=== PATIENT | male | born 1960 | race Caucasian/White ===

== ENCOUNTER → 2017-01-10 | Outpatient (CLI) | payer BC ==
[~2017-01-10] MED LIST: CEPH-507 PO; GLUC1CAP37 PO; HYDR-3875 PO; MULT-35 PO
--- OUTSIDE RECORDS SUMMARY | 2017-01-10 09:02 | XMS REPORT | Continuity of Care Document ---
Author Author [facility] Organization [facility] Address Unknown Phone Unavailable Allergies Medications Problems Date Dx Coded Attending Type Code Diagnosis Diagnosed By 10/01/2015 Ot 719.41 10/01/2015 Ot 786.59 10/01/2015 Ot 715.31 10/01/2015 Ot 719.41 10/01/2015 Ot 719.81 10/15/2015 KENNY HURST MD Ot R93.7 Procedures Results Encounters ACCT No. Visit Date/Time Discharge Status Pt. Type Provider Facility Loc./Unit Complaint [id number] 10/01/2015 07:23:00 2014 23:59:59 CLS Outpatient KENNY HURST MD [facility] RAD [id number] 07/12/2012 08:47:00 Document Registration [id number] 07/12/2012 07:37:00 Document Registration
--- NOTE | 2017-01-10 13:38 | Diagnostic Imaging Report ---
Ultrasound of the scrotum. INDICATION: Right-sided fullness. FINDINGS: There are no prior studies available for comparison. Spectral and color flow imaging was utilized. Both testicles were identified. The right testicle measures 3.1 x 2.2 x 2.6 cm while the left testicle measures 2.8 x 1.5 x 2.1 cm. There is no evidence for a solid testicular mass and there is good blood flow to each testicle. There is a sizable 3.2 x 2.6 x 3.5 cm epididymal cyst on the right. This cyst contains few internal echoes and I suspected that it has been slightly complicated by infection and/or hemorrhage. The epididymis on the left also contains a cyst but this is much smaller. The left epididymal cyst measures 1.5 x 0.7 x 0.9 cm and appears to be a simple cyst. There is no hydrocele or varicocele formation identified. IMPRESSION: 1. There is no evidence for a solid testicular mass and there is no sign of torsion. 2. There are bilateral epididymal cysts including a sizable, slightly complicated 3.2 x 2.6 x 3.5 cm cyst arising from the right epididymis. Dictated by: Dictated on workstation # [id number]
== END ==
LOC: RAD 08:59
PROVIDERS: ATTEND Internal Medicine
DX: N44.8 Other noninflammatory disorders of the testis (principal)
CPT/HCPCS: 76870

== ENCOUNTER 2017-01-17 05:47 | Outpatient (CLI) | payer BC ==
[~2017-01-17] VITALS: Ht 175.3 cm; Wt 79.4 kg
--- OUTSIDE RECORDS SUMMARY | 2017-01-17 05:50 | XMS REPORT | Continuity of Care Document ---
Author Author [facility] Organization [facility] Address Unknown Phone Unavailable Allergies Medications Problems Date Dx Coded Attending Type Code Diagnosis Diagnosed By 10/01/2015 Ot 719.41 10/01/2015 Ot 786.59 10/01/2015 Ot 715.31 10/01/2015 Ot 719.41 10/01/2015 Ot 719.81 10/15/2015 KENNY HURST MD Ot R93.7 01/10/2017 Ot 719.41 JOINT PAIN-SHLDER 01/10/2017 Ot 786.59 CHEST PAIN NEC 01/10/2017 Ot 715.31 LOC OSTEOARTH NOS-SHLDER 01/10/2017 Ot 719.41 JOINT PAIN-SHLDER 01/10/2017 Ot 719.81 JOINT DIS NEC-SHLDER 01/10/2017 ARIS GALLAGHER, KENNY Boyd Ot R93.7 ABNORMAL FINDINGS ON DIAGNOSTIC IMAGING 01/11/2017 JUAN M GALLAGHER, YOSSI Gracia Ot N44.8 OTHER NONINFLAMMATORY DISORDERS OF THE T Procedures Results Encounters ACCT No. Visit Date/Time Discharge Status Pt. Type Provider Facility Loc./Unit Complaint [id number] 10/01/2015 07:23:00 2014 23:59:59 CLS Outpatient KENNY HURST MD [facility] RAD SHOULDER DYSFUNCTION/ARTHRITIS [id number] 01/17/2017 05:47:00 ACT Outpatient SWETA HARDWICK MD [facility] PREOP RIGHT SPERMITIS [id number] 01/10/2017 08:59:00 ACT Outpatient YOSSI MCGOWAN MD [facility] RAD ENLARGED RIGHT TESTICLE [id number] 07/12/2012 08:47:00 Document Registration [id number] 07/12/2012 07:37:00 Document Registration
[2017-01-17] MEDS ORDERED: MULT-35 PO (14:50)
[2017-01-17] MEDS ORDERED: GLUC1CAP37 PO (14:50)
== END 2017-01-17 14:55 ==
LOC: PREOP 05:47
PROVIDERS: ATTEND Urology
DX: Z01.818 Encounter for other preprocedural examination (principal); Z12.11 Encounter for screening for malignant neoplasm of colon

== ENCOUNTER 2017-01-19 06:00 | Day surgery (SDC) | payer BC ==
[~2017-01-19] VITALS: Ht 175.3 cm; Wt 79.4 kg
[~2017-01-19 06:00] MED LIST changes: -CEPH-507 PO; -HYDR-3875 PO
--- OUTSIDE RECORDS SUMMARY | 2017-01-19 06:04 | XMS REPORT | Continuity of Care Document ---
Author Author [facility] Organization [facility] Address Unknown Phone Unavailable Allergies Active Description Code Type Severity Reaction Onset Reported/Identified Relationship to Patient Clinical Status Yes No Known Drug Allergies [id number] Drug Allergy Unknown N/ A 01/17/2017 Medications Problems Date Dx Coded Attending Type Code Diagnosis Diagnosed By 10/01/2015 Ot 719.41 10/01/2015 Ot 786.59 10/01/2015 Ot 715.31 10/01/2015 Ot 719.41 10/01/2015 Ot 719.81 10/15/2015 KENNY HURST MD Ot R93.7 01/10/2017 Ot 719.41 JOINT PAIN-SHLDER 01/10/2017 Ot 786.59 CHEST PAIN NEC 01/10/2017 Ot 715.31 LOC OSTEOARTH NOS-SHLDER 01/10/2017 Ot 719.41 JOINT PAIN-SHLDER 01/10/2017 Ot 719.81 JOINT DIS NEC-SHLDER 01/10/2017 KENNY HURST MD Ot R93.7 ABNORMAL FINDINGS ON DIAGNOSTIC IMAGING 01/11/2017 JUAN M GALLAGHER, YOSSI Gracia Ot N44.8 OTHER NONINFLAMMATORY DISORDERS OF THE T 01/18/2017 SWETA HARDWICK MD Ot Z01.818 ENCOUNTER FOR OTHER PREPROCEDURAL EXAMIN 01/18/2017 SWETA HARDWICK MD Ot Z12.11 ENCOUNTER FOR SCREENING FOR MALIGNANT NE Procedures Results Encounters ACCT No. Visit Date/Time Discharge Status Pt. Type Provider Facility Loc./Unit Complaint [id number] 01/17/2017 05:47:00 2016 14:55:00 DIS Outpatient SWETA HARDWICK MD [facility] PREOP RIGHT SPERMITIS [id number] 10/01/2015 07:23:00 2014 23:59:59 CLS Outpatient KENNY HURST MD [facility] RAD SHOULDER DYSFUNCTION/ARTHRITIS [id number] 01/19/2017 06:00:00 ACT Outpatient SWETA HARDWICK MD [facility] RIGHT SPERMITIS [id number] 01/10/2017 08:59:00 ACT Outpatient YOSSI MCGOWAN MD [facility] RAD ENLARGED RIGHT TESTICLE [id number] 07/12/2012 08:47:00 Document Registration [id number] 07/12/2012 07:37:00 Document Registration
--- OUTSIDE RECORDS SUMMARY | 2017-01-19 06:04 | XMS REPORT | Continuity of Care Document ---
Author Author [facility] Organization [facility] Address Unknown Phone Unavailable Allergies Active Description Code Type Severity Reaction Onset Reported/Identified Relationship to Patient Clinical Status Yes No Known Drug Allergies [id number] Drug Allergy Unknown N/ A 01/17/2017 Medications [...] Status Pt. Type Provider Facility Loc./Unit Complaint [id number] 01/17/2017 05:47:00 2016 14:55:00 DIS Outpatient SWETA HARDWICK MD [facility] PREOP RIGHT SPERMITIS [id number] 10/01/2015 07:23:00 2014 23:59:59 CLS Outpatient KENNY HURST MD [facility] RAD SHOULDER DYSFUNCTION/ARTHRITIS [id number] 01/19/2017 06:00:00 ACT Outpatient SWETA HARDWICK MD [facility] RIGHT SPERMITIS [id number] 01/10/2017 08:59:00 ACT Outpatient YOSSI MCGOWAN MD [facility] RAD ENLARGED RIGHT TESTICLE [id number] 07/12/2012 08:47:00 Document Registration [id number] 07/12/2012 07:37:00 Document Registration
[2017-01-19] MEDS: LACTATED RINGERS 1,000 ML IV PRN ×2 (06:30→08:05)
[2017-01-19] MEDS ORDERED: ceFAZolin 1,000 MG (ANCEF) VIAL ONE (06:32)
[2017-01-19] MEDS ORDERED: NS (IVPB) 50 ML ONE (06:32)
[2017-01-19] MEDS ORDERED: DEXAMETHASONE PF 10 MG/ML (DECADRON) VIAL ONE (06:57)
[2017-01-19] MEDS ORDERED: MIDAZOLAM 2 MG/2 ML (VERSED) VIAL ONE (06:57)
[2017-01-19] MEDS ORDERED: LACTATED RINGERS 1,000 ML IV ONE ×2 (06:57→08:00)
[2017-01-19] MEDS ORDERED: ONDANSETRON 4 MG/2 ML (SDV) Z0FRAN ONE (06:57)
[2017-01-19] MEDS ORDERED: fentaNYL INJECTION 100 MCG/2 ML AMP ONE ×2 (06:57→07:48)
[2017-01-19] MEDS ORDERED: proPOfol 200 MG/20 ML (DIPRIVAN) VIAL IV ONE (06:57)
[2017-01-19] MEDS ORDERED: LIDOCAINE PF 2% 10 ML (XYLOCAINE) AMP ONE (06:57)
[2017-01-19] MEDS ORDERED: SEVOFLURANE (ULTANE) 15 ML INHAL SOLN ONE ×5 (06:57→08:40)
[2017-01-19] MEDS ORDERED: CATHETER FLUSH 10 ML SYR IV PRN (07:15)
[2017-01-19] MEDS ORDERED: ceFAZolin 1 GM/NS 50 ML IVPB IV ONE ×2 (07:15)
--- NOTE | 2017-01-19 07:15 | Progress Note-Post Operative ---
Post-Operative Progess Note Pre-Operative Diagnosis RT SPERMATOCELE Post-Operative Diagnosis SAME Post-Op Procedure Note Date of Procedure: Jan 19, 2017 Name of Procedure: RT SPERMATOCELECTOMY Anesthesia Type GENERAL Estimated blood loss (mL): NEGLIGIBLE Specimen(s) collected RT SPERMATOCELE SWETA HARDWICK MD Jan 19, 2017 7:15 am
--- NOTE | 2017-01-19 07:15 | Progress Note-Pre Operative ---
Pre-Operative Progress Note H&P Reviewed The H&P was reviewed, patient examined and no changes noted. Date H&P Reviewed: Jan 19, 2017 Time H&P Reviewed: 07:14 Pre-Operative Diagnosis: RT SPERMATOCELE SWETA HARDWICK MD Jan 19, 2017 7:15 am
--- NOTE | 2017-01-19 07:18 | Discharge Inst-Urology ---
Discharge Inst-Urology Discharge Medications New, Converted, or Re-newed RX: RX on Chart Patient Instructions/Follow Up Plan Please make appointment to been seen in office in 2 weeks. Rest till then Ice to scrotum in RR and at home for 6hrs and then PRN Office tomorrow 9AM to DC drain, may shower after that, no bath Keep bowels soft and moving Increase oral fluids for 48 hours and then as needed. Diet and Activity as tolerated. If questions or concerns contact your physician Or seek help at emergency department. SWETA HARDWICK MD Jan 19, 2017 7:18 am
[2017-01-19 07:41] VITALS: BP 119/83
[2017-01-19] MEDS: morphine INJ 10 MG/ML 1ML (SYR OR VIAL) IVP PRN ×3 (08:59→09:13)
[2017-01-19] MEDS ORDERED: MEPERIDINE (DEMEROL) INJ 50 MG/ML IVP PRN (09:00)
[2017-01-19] MEDS ORDERED: ONDANSETRON 4 MG/2 ML (SDV) Z0FRAN IVP PRN (09:00)
[2017-01-19 09:40] VITALS: BP 132/90
[2017-01-19 10:10] VITALS: BP 122/79
[2017-01-19] MEDS ORDERED: HYDR-3875 PO (10:13)
[2017-01-19] MEDS ORDERED: CEPH-507 PO (10:13)
[2017-01-19] MEDS ORDERED: HYDROcodone/APAP 7.5 MG/325 MG (LORTAB, LORCET PLUS) TABLET PO ONE (10:30)
[2017-01-19 10:40] VITALS: BP 125/79
--- NOTE | 2017-01-19 13:45 | OPERATIVE REPORT ---
PROCEDURE PHYSICIAN: SWETA HARDWICK DATE OF PROCEDURE: 01/19/2017 PREOPERATIVE DIAGNOSIS: Right spermatocele. POSTOPERATIVE DIAGNOSIS: Right spermatocele. OPERATION: Right spermatocelectomy. SURGEON: Travis. ANESTHESIA: General. COMPLICATIONS: None. PROCEDURE: Under satisfactory general anesthesia, the patient supine position, the genitalia, abdomen and thigh were prepped and draped in usual sterile fashion. Incision was made in the median raphe, carried through the different layers of the scrotum. Bleeders were cauterized as the dissection was proceeding. The testicle and all structures were delivered. Was a big loculated spermatocele, testicle relatively smaller in size still bigger than the one on the left. The vessels were identified as well as the vas and preserved at all times. I tried to resect the whole spermatocele with all loculations without injuring any vital structures. Again, bleeders were cauterized or ligated with 4-0 chromic catgut. The sac was sent for pathology. Epididymis remained intact, as well as the vessels, vas and testicle remained healthy and pink and hemostasis was complete. The edge of the sac was sutured with a 4-0 chromic catgut running suture to prevent recurrence as well as hemostasis. The testicle was replaced into the scrotum which was drained with a quarter of an inch Lawn drain, brought through a separate stab wound at the bottom of the scrotum, secured in position with a 3-0 chromic catgut chart. Closure was performed in layers. The dartos with running 3-0 chromic catgut and the skin interrupted 4-0 Vicryl. Telfa fluff scrotal support was applied. Needle, sponge, and instrument counts were correct x2. Estimated blood loss was negligible. The patient tolerated the procedure and anesthesia well and was sent to recovery room in stable condition. Instructions were given to the family. Job ID: [id number] Dictated Date: 01/19/2017 08:42:27 Area Intelligence Technician Date: 01/19/2017 13:38:38 / juliocesar
== END 2017-01-19 11:25 | disposition home or self-care (01) ==
LOC: SDC 06:00
PROVIDERS: ATTEND Urology
DX: N43.41 Spermatocele of epididymis, single (principal); Z11.2 Encounter for screening for other bacterial diseases
CPT/HCPCS: 87081; 88304

== ENCOUNTER 2017-02-01 09:00 | Outpatient (CLI) | payer BC ==
[~2017-02-01] VITALS: Ht 175.3 cm; Wt 79.4 kg
[~2017-02-01 09:00] MED LIST changes: +CEPH-507 PO; +HYDR-3875 PO
== END 2017-02-01 10:59 ==
LOC: PREOP 09:00
PROVIDERS: ATTEND Surgery Pediatric Surgery
DX: Z01.818 Encounter for other preprocedural examination (principal); Z12.11 Encounter for screening for malignant neoplasm of colon

== ENCOUNTER 2017-02-02 09:20 | Day surgery (SDC) | payer BC ==
[~2017-02-02] VITALS: Ht 175.3 cm; Wt 79.4 kg
[2017-02-02] MEDS ORDERED: NS IV 500 ML 500 ML IV ONE (09:30)
[2017-02-02] MEDS ORDERED: FLUMAZENIL (ROMAZICON) 0.1 MG/ML 5 ML VIAL INJ PRN (09:30)
[2017-02-02] MEDS ORDERED: NALOXONE 0.4 MG/ML 1 ML (NARCAN) VIAL IVP PRN (09:30)
--- NOTE | 2017-02-02 09:39 | Conscious Sedation/ASA ---
Conscious Sedation Pre-Proced Time Reviewed: 09:30 ASA Class: 2 Airway Mallampati Classification: (nuiqsut appropriate class) I. II. III, IV Lungs Heart ASA score ASA 1: a normal healthy patient ASA 2: a patient with a mild systemic disease (mid diabetes, controlled hypertension, obesity ASA 3: a patient with a severe systemic disease that limits activity (angina , COPD, prior Myocardial infarction) ASA 4: a patient with an incapacitating disease that is a constant threat to life (CHF, renal failure) ASA 5: a moribund patient not expected to survive 24 hrs. (ruptured aneurysm) ASA 6: a declared brain patient whose organs are being harvested. For emergent operations, add the letter E after the classification Grade 2 Sedation Plan: Analgesia, Amnesia, Plan communicated to team members, Discussed options with patient/fam, Discussed risks with patient/fam Note The patient is an appropriate candidate to undergo the planned procedure, sedation, and anesthesia. The patient immediately re-assessed prior to indication. WALLY RABAGO MD Feb 02, 2017 9:39 am
--- NOTE | 2017-02-02 09:39 | Progress Note-Pre Operative ---
Pre-Operative Progress Note H&P Reviewed The H&P was reviewed, patient examined and no changes noted. Date H&P Reviewed: Feb 02, 2017 Time H&P Reviewed: 09:30 Pre-Operative Diagnosis: screening colonoscopy WALLY RABAGO MD Feb 02, 2017 9:39 am
[2017-02-02] MEDS: fentaNYL INJECTION 100 MCG/2 ML AMP IVP PRN ×2 (09:42→09:57)
[2017-02-02] MEDS: MIDAZOLAM 2 MG/2 ML (VERSED) VIAL IVP PRN ×4 (09:43→10:03)
[2017-02-02] MEDS ORDERED: HYDROcodone/APAP 5 MG/325 MG (LORTAB) TAB PO PRN ×2 (09:45→10:30)
[2017-02-02] MEDS ORDERED: ONDANSETRON 4 MG/2 ML (SDV) Z0FRAN IV PRN ×2 (09:45→10:30)
[2017-02-02] MEDS ORDERED: ACETAMINOPHEN 325 MG TABLET/CAPLET (TYLENOL) PO PRN ×2 (09:45→10:30)
[2017-02-02] MEDS ORDERED: morphine INJ 10 MG/ML 1ML (SYR OR VIAL) IV PRN ×2 (09:45→10:30)
[2017-02-02 10:15] VITALS: BP 130/85
--- NOTE | 2017-02-02 10:21 | Progress Note-Post Operative ---
Post-Operative Progess Note Surgeon (s)/Heading Saw Operator (s) Surgeon WALLY RABAGO MD Heading Saw Operator: none Pre-Operative Diagnosis screening colonoscopy Post-Operative Diagnosis chronic stage 1 ext and int hemmorrhoids, moderate-severe sigmoid diverticulosis, HP polyp hepatic flexure. Post-Op Procedure Note Date of Procedure: Feb 02, 2017 Name of Procedure Performed: Colonoscopy with bx. Description of the Procedure: Colonoscopy with bx. Findings of the Procedure . Anesthesia Type CS Estimated blood loss (mL): minimal Specimen(s) collected/removed hepatic flexure polyp WALLY RABAGO MD Feb 02, 2017 10:21 am
--- NOTE | 2017-02-02 10:23 | Discharge Inst-Surgical ---
D/C Lap Instructions-GEM Follow Up 5 years Activity as tolerated High Fiber Diet 25g or more per day Avoid Alcohol, Caffeine, Spicy [place] and Acid foods. Drink 64 fluid oz or more of fluids per day. Symptoms to Report: Fever over 101 degree F, Nausea/Vomiting If any problems/questions: Contact your physician or go to Emergency Room WALLY RABAGO MD Feb 02, 2017 10:23 am
[2017-02-02 10:30] VITALS: BP 107/81
[2017-02-02] MEDS ORDERED: LIDOCAINE JELLY 2% (XYLOCAINE) 5 ML TUBE TOP ONE (10:30)
[2017-02-02 11:00] VITALS: BP 119/79
[2017-02-02 11:10] VITALS: BP 119/79
--- NOTE | 2017-02-03 06:28 | OPERATIVE REPORT ---
PROCEDURE PHYSICIAN: WALLY INGRAM DATE OF PROCEDURE: 02/02/2017 ATTENDING PRIMARY CARE PHYSICIAN: Dr. Alberto. PREOPERATIVE DIAGNOSIS: Screening colonoscopy. POSTOPERATIVE DIAGNOSES: 1. Chronic stage I external and internal hemorrhoids. 2. Moderate to severe sigmoid diverticulosis. 3. Small hyperplastic polyp at the hepatic flexure. PROCEDURE: Colonoscopy with biopsy. SURGEON: Dr. Ingram. ANESTHESIA: Conscious sedation. ESTIMATED BLOOD LOSS: Minimal. FINDINGS: 1. Chronic stage I external and internal hemorrhoids. 2. Prostate gland was palpable and appeared normal. 3. Moderate to severe sigmoid diverticulosis with no signs of diverticulitis. 4. Small hyperplastic polyp at the hepatic flexure, approximately 2 mm in size. DISPOSITION: The patient tolerated the procedure well. BRIEF HISTORY: Mr. Ponce Funes is a 56-year-old and male in need of a screening colonoscopy. He has not had a colonoscopy up to this point in his life. He reports that he is doing well and does not report any major issues with diarrhea nor constipation, as well as no red blood per rectum nor any dark tarry stools. He also does not report any family history of colon cancer. PROCEDURE: The patient was brought to the endoscopy suite, laid in left lateral decubitus position. After adequate IV pain and sedative medications and conscious sedation anesthesia, a digital rectal examination was performed. Chronic stage I external and internal hemorrhoids were identified which were not actively edematous or inflamed and no bleeding. Normal sphincter tone was felt and there were no palpable masses. The prostate gland was palpable and appeared normal. The endoscope was then intubated into the anus and the rectum gently insufflated. The endoscope was then advanced through the valves of Wren the rectum with no polyps or any neoplasms identified. The endoscope was then advanced through the sigmoid colon where a moderate to severe segment of sigmoid diverticulosis was identified. There were no mucosal inflammatory changes to indicate any active diverticulitis. The endoscope was then advanced through the remainder of the descending, transverse colon. At the level of the hepatic flexure, a small hyperplastic polyp, approximately 2 mm in size was identified. This was biopsied and destroyed using forceps and electrocautery with visualization of good hemostasis. The endoscope was then advanced through the ascending colon to the cecum. This was normal. The endoscope was then slowly withdrawn while taking a second look and suctioning residual air with no additional findings. The patient tolerated the procedure well. We will have him continue with medical management with a high fiber diet with at least 30 grams of fiber per day, as well as at least 64 fluid ounces of water daily to promote soft stools on a daily basis. With the finding of polyp we would recommend a follow-up colonoscopy in 5 years. Job ID: [id number] Dictated Date: 02/02/2017 10:16:05 Sterile Instrument Technician Date: 02/03/2017 06:22:27 / larry
--- OUTSIDE RECORDS SUMMARY | 2017-02-27 04:16 | XMS REPORT | Continuity of Care Document ---
Author Author [facility] Organization [facility] Address Unknown Phone Unavailable Allergies Active Description Code Type Severity Reaction Onset Reported/Identified Relationship to Patient Clinical Status Yes No Known Drug Allergies [id number] Drug Allergy Unknown N/ A 01/17/2017 Medications [...] R93.7 ABNORMAL FINDINGS ON DIAGNOSTIC IMAGING 01/11/2017 YOSSI MCGOWAN MD Ot N44.8 OTHER NONINFLAMMATORY DISORDERS OF THE T 01/18/2017 SWETA HARDWICK MD Ot Z01.818 ENCOUNTER FOR OTHER PREPROCEDURAL EXAMIN 01/18/2017 SWETA HARDWICK MD Ot Z12.11 ENCOUNTER FOR SCREENING FOR MALIGNANT NE 01/19/2017 SWETA HARDWICK MD Ot N43.41 SPERMATOCELE OF EPIDIDYMIS, SINGLE 01/19/2017 SWETA HARDWICK MD Ot Z11.2 ENCOUNTER FOR SCREENING FOR OTHER BACTER 01/20/2017 YOSSI MCGOWAN MD Ot N44.8 OTHER NONINFLAMMATORY DISORDERS OF THE T 01/20/2017 SWETA HARDWICK MD Ot N43.41 SPERMATOCELE OF EPIDIDYMIS, SINGLE 01/20/2017 SWETA HARDWICK MD Ot Z11.2 ENCOUNTER FOR SCREENING FOR OTHER BACTER 01/21/2017 SWETA HARDWICK MD Ot N43.41 SPERMATOCELE OF EPIDIDYMIS, SINGLE 01/21/2017 SWETA HARDWICK MD Ot Z11.2 ENCOUNTER FOR SCREENING FOR OTHER BACTER 01/23/2017 SWETA HARDWICK MD Ot Z01.818 ENCOUNTER FOR OTHER PREPROCEDURAL EXAMIN 01/23/2017 SWETA HARDWICK MD Ot Z12.11 ENCOUNTER FOR SCREENING FOR MALIGNANT NE 01/26/2017 SWETA HARDWICK MD Ot N43.41 SPERMATOCELE OF EPIDIDYMIS, SINGLE 01/26/2017 SWETA HARDWICK MD Ot Z11.2 ENCOUNTER FOR SCREENING FOR OTHER BACTER 02/01/2017 WALLY RABAGO MD Ot Z01.818 ENCOUNTER FOR OTHER PREPROCEDURAL EXAMIN 02/01/2017 WALLY RABAGO MD Ot Z12.11 ENCOUNTER FOR SCREENING FOR MALIGNANT NE 02/03/2017 WALLY RABAGO MD Ot K57.30 DVRTCLOS OF LG INT W/O PERFORATION OR AB 02/03/2017 WALLY RABAGO MD Ot K63.5 POLYP OF COLON 02/03/2017 WALLY RABAGO MD Ot K64.0 FIRST DEGREE HEMORRHOIDS 02/03/2017 WALLY RABAGO MD Ot Z12.11 ENCOUNTER FOR SCREENING FOR MALIGNANT NE 02/03/2017 WALLY RABAGO MD Ot K57.30 DVRTCLOS OF LG INT W/O PERFORATION OR AB 02/03/2017 WALLY RABAGO MD Ot K63.5 POLYP OF COLON 02/03/2017 WALLY RABAGO MD Ot K64.0 FIRST DEGREE HEMORRHOIDS 02/03/2017 WALLY RABAGO MD Ot Z12.11 ENCOUNTER FOR SCREENING FOR MALIGNANT NE Procedures Results Test Result Range Methicillin resistant Staphylococcus aureus (MRSA) screening culture - 06:20 Methicillin resistant Staphylococcus aureus (MRSA) screening culture NEG NRG Encounters ACCT No. Visit Date/Time Discharge Status Pt. Type Provider Facility Loc./Unit Complaint [id number] 02/02/2017 09:20:00 2016 11:10:00 DIS Outpatient WALLY RABAGO MD [facility] ENDO SCREENING [id number] 02/01/2017 09:00:00 2016 10:59:00 DIS Outpatient WLALY RABAGO MD [facility] PREOP SCREENING [id number] 01/19/2017 06:00:00 2016 11:25:00 DIS Outpatient SWETA HARDWICK MD [facility] RIGHT SPERMATITIS [id number] 01/17/2017 05:47:00 2016 14:55:00 DIS Outpatient SWETA HARDWICK MD [facility] PREOP RIGHT SPERMITIS [id number] 10/01/2015 07:23:00 2014 23:59:59 CLS Outpatient ARIS GALLAGHER, KENNY Boyd [facility] RAD SHOULDER DYSFUNCTION/ARTHRITIS [id number] 01/10/2017 08:59:00 ACT Outpatient JUAN M GALLAGHER, YOSSI Gracia [facility] RAD ENLARGED RIGHT TESTICLE [id number] 07/12/2012 08:47:00 Document Registration [id number] 07/12/2012 07:37:00 Document Registration
== END 2017-02-02 11:10 | disposition home or self-care (01) ==
LOC: DELPENDDIS → ENDO 09:20
PROVIDERS: ATTEND Surgery Pediatric Surgery
DX: Z12.11 Encounter for screening for malignant neoplasm of colon (principal); K63.5 Polyp of colon; K64.0 First degree hemorrhoids; K57.30 Diverticulosis of large intestine without perforation or abscess without bleeding
CPT/HCPCS: 88305

== ENCOUNTER → 2020-01-11 | Outpatient (CLI) | payer BC ==
--- NOTE | 2020-01-11 09:04 | Diagnostic Imaging Report ---
PROCEDURE: US Thyroid. TECHNIQUE: Multiple real-time grayscale images were obtained of the thyroid in various projections. INDICATION: Thyroid enlargement. FINDINGS: The right thyroid lobe measured 5.1 x 1.9 x 1.4 cm. The parenchyma predominantly is homogenous, but there is a circumscribed transversely oriented relatively hypoechoic nodule presumed solid and its mid pole posteromedially measuring 8 mm long axis. The left thyroid lobe measured 4.3 x 1.3 x 1.2 cm and contains a tiny circumscribed hypoechoic nodule measuring 4 mm maximum. Left lobe parenchyma is otherwise nonfocal and normal. The isthmus is 3 mm thick and normal. IMPRESSION: Small subcentimeter benign-appearing bilateral thyroid nodules as described. No dominant or suspicious appearing mass. Dictated by: Dictated on workstation # [id number]
== END ==
LOC: RAD 07:42
PROVIDERS: ATTEND Internal Medicine
DX: E04.2 Nontoxic multinodular goiter (principal)
CPT/HCPCS: 76536

== ENCOUNTER → 2021-01-19 | Outpatient (CLI) | payer BC ==
--- NOTE | 2021-01-19 08:38 | Diagnostic Imaging Report ---
PROCEDURE: US Thyroid. TECHNIQUE: Multiple Real-time grayscale images were obtained of the thyroid in various projections. INDICATION: Thyroid nodule. COMPARISON: Correlation is made with the prior thyroid ultrasound from 01/11/2020. FINDINGS: The right lobe of the thyroid measures 4.9 x 2.1 x 1.8 cm and the left lobe measures 4.0 x 1.6 x 1.2 cm. The isthmus is 6 mm in thickness. A previously noted nodule in the right lobe of the thyroid is no longer appreciated. There is a tiny nodule in the left lobe measuring approximately 5 mm x 3 mm in size, stable. No dominant thyroid mass is detected. IMPRESSION: Subcentimeter left lobe thyroid nodule. Previously noted right lobe nodule is no longer visualized. There is no dominant mass detected. Dictated by: Dictated on workstation # [id number]
== END ==
LOC: RAD 08:00
PROVIDERS: ATTEND Internal Medicine
DX: E04.1 Nontoxic single thyroid nodule (principal)
CPT/HCPCS: 76536

== ENCOUNTER → 2022-01-18 | Outpatient (CLI) | payer BC ==
[~2022-01-18] VITALS: Ht 175.3 cm; Wt 78.0 kg
== END ==
LOC: PREOP 05:39
PROVIDERS: ATTEND Surgery
DX: Z01.818 Encounter for other preprocedural examination (principal)

== ENCOUNTER 2022-01-20 13:26 | Day surgery (SDC) | payer BC ==
[~2022-01-20] VITALS: Ht 175.3 cm; Wt 78.0 kg
[2022-01-20] MEDS ORDERED: LACTATED RINGERS 1,000 ML IV ONE (13:31)
[2022-01-20] MEDS ORDERED: LACTATED RINGERS 1,000 ML IV STA (13:33)
--- NOTE | 2022-01-20 13:42 | Progress Note-Pre Operative ---
Pre-Operative Progress Note H&P Reviewed The H&P was reviewed, patient examined and no changes noted. Date Seen by Provider: Jan 20, 2022 Time Seen by Provider: 13:00 Date H&P Reviewed: Jan 20, 2022 Time H&P Reviewed: 13:00 Pre-Operative Diagnosis: screening, hx polyp WALLY RABAGO MD Jan 20, 2022 13:42
--- NOTE | 2022-01-20 13:43 | Discharge Inst-Surgical ---
D/C Lap Instructions-GEM Follow Up Activity as tolerated High Fiber Diet 25g or more per day Avoid Alcohol, Caffeine, Spicy [place] and Acid foods. Drink 64 fluid oz or more of fluids per day. Symptoms to Report: Fever over 101 degree F, Nausea/Vomiting If any problems/questions: Contact your physician or go to Emergency Room WALLY RABAGO MD Jan 20, 2022 13:43
[2022-01-20] MEDS ORDERED: ONDANSETRON 4 MG (ZOFRAN) ORAL DISSOLVE TAB PO PRN (13:45)
[2022-01-20] MEDS ORDERED: ONDANSETRON 4 MG/2 ML (SDV) Z0FRAN IVP PRN (13:45)
[2022-01-20] MEDS ORDERED: LIDOCAINE JELLY 2% 6 ML SYRINGE MM PRN (13:45)
[2022-01-20 13:48] VITALS: BP 121/82
[2022-01-20] MEDS ORDERED: PROPOFOL INJECTION 50 ML IV ONE (14:25)
[2022-01-20] MEDS ORDERED: MIDAZOLAM 2 MG/2 ML (VERSED) VIAL ONE (14:26)
[2022-01-20 15:10] VITALS: BP 108/68
[2022-01-20 15:15] VITALS: BP 113/68
[2022-01-20 15:20] VITALS: BP 118/71
[2022-01-20 15:25] VITALS: BP 125/77
[2022-01-20 15:55] VITALS: BP 102/54
--- NOTE | 2022-01-20 15:57 | Anesthesia-General Post-Op ---
MAC Patient Condition Mental Status/LOC: Same as Preop Cardiovascular: Satisfactory Nausea/Vomiting: Absent Respiratory: Satisfactory Pain: Controlled Complications: Absent Post Op Complications Complications None Follow Up Care/Instructions Patient Instructions None needed. Anesthesiology Discharge Order Discharge Order Patient is doing well, no complaints, stable vital signs, no apparent adverse anesthesia problems. No complications reported per nursing. KRUNAL HOWARD CRNA Jan 20, 2022 15:57
--- NOTE | 2022-01-20 16:07 | Progress Note-Post Operative ---
Post-Operative Progess Note Surgeon (s)/Infertility Medical Assistant (s) Surgeon WALLY RABAGO MD Infertility Medical Assistant: none Pre-Operative Diagnosis screening, hx polyp Post-Operative Diagnosis moderate sigmoid diverticulosis. Procedure & Operative Findings Date of Procedure 01/20/22 Procedure Performed/Findings colonoscopy Anesthesia Type mac Estimated Blood Loss Estimated blood loss (mL): minimal Specimens/Packing Specimens Removed none WALLY RABAGO MD Jan 20, 2022 16:07
--- NOTE | 2022-01-20 19:56 | OPERATIVE REPORT ---
DATE OF SERVICE: 01/20/2022 ATTENDING PRIMARY CARE PHYSICIAN: Dr. Eddi Alberto. PREOPERATIVE DIAGNOSIS: Screening colonoscopy with history of tubular adenoma. POSTOPERATIVE DIAGNOSES: Mild chronic stage II external and internal hemorrhoids, moderate sigmoid diverticulosis. PROCEDURE PERFORMED: Colonoscopy. SURGEON: Wally Rabago MD. ANESTHESIA: Monitored anesthesia care. ESTIMATED BLOOD LOSS: Minimal. FINDINGS: Mild chronic stage II external and internal hemorrhoids, moderate sigmoid diverticulosis. DISPOSITION: The patient tolerated the procedure well. INDICATIONS FOR PROCEDURE: The patient is a 61-year-old male referred over to us for a screening colonoscopy. He did have a colonoscopy approximately five years ago, where there was a polyp identified, which was biopsied and was consistent with a tubular adenoma. He does not report any major issues with diarrhea nor constipation as well as no red blood per rectum nor any dark tarry stools. He also does not report any family history of colon cancer. DESCRIPTION OF PROCEDURE: The patient was brought to the endoscopy suite and laid in the left lateral decubitus position. After adequate IV pain and sedative medications and monitored anesthesia care, a digital rectal examination was performed. Chronic stage II external and internal hemorrhoids were identified, which were not actively edematous nor inflamed and no bleeding. Normal sphincter tone was felt and there were no palpable masses. Prostate gland was palpable and appeared normal. The endoscope was then intubated into the anus and rectum gently insufflated. The endoscope was then advanced through the valves of [place] of the rectum with no polyps or any neoplasms identified. Through the sigmoid colon, a moderate sigmoid diverticulosis was identified. The endoscope was then advanced to the remainder of the descending, transverse and ascending colon to the cecum, which were normal. There were no polyps or any neoplasms identified throughout the colon or rectum. The endoscope was then slowly withdrawn while taking a second look and suctioning of residual air with no additional findings. The patient tolerated the procedure well. We will recommend a high fiber diet with addition of a fiber supplement, which should equal or exceed 30 grams daily as well as significant amounts of water to promote soft stools on a daily basis. If he is asymptomatic, he does not need another colonoscopy for another 10 years. Job ID: [id number] DocumentID: [id number] Dictated Date: 01/20/2022 15:13:56 Mechatronics Engineer Date: 01/20/2022 19:56:12 Dictated By: WALLY RABAGO MD
== END 2022-01-20 17:00 | disposition home or self-care (01) ==
LOC: ENDO 13:26
PROVIDERS: ATTEND Surgery
DX: Z12.11 Encounter for screening for malignant neoplasm of colon (principal); K57.30 Diverticulosis of large intestine without perforation or abscess without bleeding; K64.1 Second degree hemorrhoids; K64.4 Residual hemorrhoidal skin tags; Z86.010 Personal history of colon polyps